=== PATIENT | male | born 1975 | race African-American/Black ===

== ENCOUNTER 2025-04-12 13:16 | Emergency (ER) | payer MEDICAID ==
[~2025-04-12] VITALS: Ht 188 cm; Wt 105.0 kg
[2025-04-12 13:18] VITALS: O2SAT 99
[2025-04-12] MEDS: METHOCARBAMOL 500MG TABLET PO ONE (14:29)
[2025-04-12] MEDS: KETOROLAC 30MG/ML VIAL IM ONE (14:29)
[2025-04-12] MEDS ORDERED: IBUP-1455 MT (14:51)
[2025-04-12] MEDS ORDERED: LIDO700A30 TP (14:51)
[2025-04-12] MEDS ORDERED: METH-653 MT (14:51)
[2025-04-12 15:48] VITALS: BP 199/103; PULSE 73; RESP 14; TEMP 36.7; O2SAT 99
== END 2025-04-12 15:55 | disposition home or self-care (01) ==
LOC: ER 13:16
DX: M54.41 Lumbago with sciatica, right side (principal); Z79.899 Other long term (current) drug therapy
CPT/HCPCS: 72100; 96372; 99283; J1885; Z7610